=== PATIENT | female | born 1980 | race Caucasian/White ===

== ENCOUNTER 2016-12-22 10:55 | Emergency (ER) | payer MEDICAID ==
[2016-12-22 11:18] LABS: URINE APPEARANCE CLEAR; URINE BILIRUBIN NEGATIVE (NEGATIVE); URINE BLOOD TRACE-I (NEGATIVE); URINE COLOR YELLOW; URINE GLUCOSE (UA) NEGATIVE (NEGATIVE); URINE KETONE NEGATIVE (NEGATIVE); URINE LEUKOCYTE ESTERASE NEGATIVE (NEGATIVE); URINE NITRITE NEGATIVE (NEGATIVE); URINE PROTEIN NEGATIVE (NEGATIVE); URINE UROBILINOGEN 0.2 E.U./dL (0.20 - 1.00)
[2016-12-22 11:19] LABS: HCG,QUALITATIVE URINE NEGATIVE (NEGATIVE)
[2016-12-22 11:34] LABS: URINE BACTERIA NONE SEEN; URINE EPITHELIAL CELLS 0 - 2 (FEW); URINE RBC 0 - 2 (NONE SEEN); URINE WBC 0 - 2 (0-2/hpf)
--- NOTE | 2016-12-22 11:51 | Emergency Department Record ---
History of Present Illness - General Chief Complaint: Back Pain/Injury Stated Complaint: BACK PAIN Time Seen by Provider: 12/22/16 11:43 Source: Patient, RN notes reviewed - History of Present Illness Initial Comments: Patient has right sided back pain from L2 to L5 and worse bending over and moving and she is left handed and carrying her baby. who is 11 weeks old. Patient was seen at [facility] and roberto was concerned about PE and she brought her over to ED. Patient denies being SOB but her back hurts when she takes a breath. PMH two back surgeries and she has fibromylsia. No leg pains on palpation only radiation pain from her back into both legs. Back surgery 4 years ago and 3 years ago and they removed lipomas. Stopped breast feeding 3 weeks ago. MD Complaint: Back pain Onset/Timin -: Days(s) Similar Symptoms Previously: No Place: Home Radiation: Left leg, Right leg Severity: Moderate Severity scale (1-10): 8 Quality: Sharp, Other Consistency: Constant Improves With: None Worsens With: Deep breaths/cough, Movement Context: Unknown Treatments Prior to Arrival: Acetaminophen Treatment Prior to Arrival Comment:: Tylenol last PM - Related Data Home Medications Medication Instructions Recorded Confirmed Last Taken Albuterol Sulfate [Ventolin Hfa] 1 - 2 puff IH .EVERY 4-6 HOURS PRN 12/22/1611/05 Unknown Norethindrone [Jolie] 0.35 mg PO DAILY #84 12/22/16 12/22/16 12/22/16 Pnv with Ca,No.72/Iron/FA [Pnv 1 tab PO DAILY #30 12/22/16 12/22/16 12/22/16 Plus Multivit Tab] Previous Rx's Medication Instructions Recorded Epinephrine [Epipen] 0.3 mg IM ASDIR PRN #2 syr 02/19/15 Cyclobenzaprine HCl [Flexeril] 10 mg PO TID #30 tablet 12/22/16 Naproxen [Naprosyn] 500 mg PO Q12H #30 tab. 12/22/16 Allergies Allergy/AdvReac Type Severity Reaction Status Date / Time codeine Allergy Intermediate ALTERED Verified 12/22/16 11:06 MENTAL STATUS oxycodone HCl [From Percocet] Allergy Mild HIVES Verified 12/22/16 11:06 Penicillins Allergy Mild HIVES Verified 12/22/16 11:06 SHELLFISH Allergy Intermediate SWELLING Uncoded 02/19/15 14:56 (GENERAL) Travel Screening - Travel/Exposure Within Last 30 Days Have you traveled within the last 30 days?: No - Travel/Exposure Within Last Year Have you traveled outside the [place] in the last year?: No - Additonal Travel Details Have you been exposed to anyone with a communicable illness?: No - Travel Symptoms Symptom Screening: None Review of Systems Reviewed: No additional complaints except as noted below Constitutional: Reports: As per HPI. Denies: Chills, Fever, Malaise, Night sweats, Weakness, Weight change Eyes: Reports: As per HPI. Denies: Eye discharge, Eye pain, Photophobia, Vision change ENT: Reports: As per HPI. Denies: Congestion, Dental pain, Ear pain, Epistaxis , Hearing loss, Throat pain Respiratory: Reports: As per HPI. Denies: Cough, Dyspnea, Hemoptysis, Stridor, Wheezes Cardiovascular: Reports: As per HPI. Denies: Arrhythmia, Chest pain, Dyspnea on exertion, Edema, Murmurs, Orthopnea, Palpitations, Paroxysmal nocturnal dyspnea, Rheumatic Fever, Syncope Endocrine: Reports: As per HPI. Denies: Fatigue, Heat or cold intolerance, Polydipsia, Polyuria Gastrointestinal: Reports: As per HPI. Denies: Abdominal pain, Constipation, Diarrhea, Hematemesis, Hematochezia, Melena, Nausea, Vomiting Genitourinary: Reports: As per HPI. Denies: Abnormal menses, Discharge, Dyspareunia, Dysuria, Frequency, Hematuria, Incontinence, Retention, Urgency Musculoskeletal: Reports: As per HPI, Back pain (right side). Denies: Arthralgia, Gout, Joint swelling, Myalgia, Neck pain Skin: Reports: As per HPI. Denies: Bruising, Change in color, Change in hair/ nails, Lesions, Pruritus, Rash Neurological: Reports: As per HPI. Denies: Abnormal gait, Confusion, Headache, Numbness, Paresthesias, Seizure, Tingling, Tremors, Vertigo, Weakness Psychiatric: Reports: As per HPI. Denies: Anxiety, Auditory hallucinations, Depression, Homicidal thoughts, Suicidal thoughts, Visual hallucinations Hematological/Lymphatic: Reports: As per HPI. Denies: Anemia, Blood Clots, Easy bleeding, Easy bruising, Swollen glands Past Medical History - SOCIAL HISTORY Smoking Status: Current every day smoker Alcohol Use: None Drug Use: None - RESPIRATORY Hx Respiratory Disorders: Yes Hx Asthma: Yes - CARDIOVASCULAR Hx Cardio Disorders: No - NEURO Hx Neuro Disorders: No - GI Hx GI Disorders: No - Hx Genitourinary Disorders: No - ENDOCRINE Hx Endocrine Disorders: No - MUSCULOSKELETAL Hx Musculoskeletal Disorders: Yes Hx Fibromyalgia: Yes - PSYCH Hx Psych Problems: No - HEMATOLOGY/ONCOLOGY Hx Hematology/Oncology Disorders: No Family Medical History Any Significant Family History?: Yes Hx Cancer: Grandparents Hx Heart Disease: Grandparents Physical Exam - General General Appearance: Alert, Oriented x3, Cooperative, No acute distress - Head Head exam: Normal inspection - Eye Eye exam: Normal appearance, PERRL Pupils: Normal accommodation - ENT ENT exam: Normal exam, Mucous membranes moist, Normal external ear exam, Normal orophraynx, TM's normal bilaterally Ear exam: Normal external inspection. negative: External canal tenderness Nasal Exam: Normal inspection. negative: Discharge, Sinus tenderness Mouth exam: Normal external inspection, Tongue normal Teeth exam: Normal inspection. negative: Dental caries Throat exam: Normal inspection. negative: Tonsillar erythema, Tonsillar exudate - Neck Neck exam: Normal inspection, Full ROM. negative: Tenderness - Respiratory Respiratory exam: Normal lung sounds bilaterally. negative: Respiratory distress - Cardiovascular Cardiovascular Exam: Regular rate, Normal rhythm, Normal heart sounds - GI/Abdominal GI/Abdominal exam: Soft, Normal bowel sounds. negative: Tenderness - Rectal Rectal exam: Deferred - exam: Deferred - Extremities Extremities exam: Normal inspection, Full ROM, Normal capillary refill. negative: Tenderness - Back Back exam: Reports: Normal inspection, Full ROM, Tenderness. Denies: Muscle spasm, Rash noted - Neurological Neurological exam: Alert, Normal gait, Oriented X3, Reflexes normal - Psychiatric Psychiatric exam: Normal affect, Normal mood - Skin Skin exam: Dry, Intact, Normal color, Warm Course Vital Signs 12/22/16 11:08 Temperature 97.8 F Pulse Rate 92 H Respiratory 18 Rate Blood Pressure 92/64 Pulse Ox 100 Medical Decision Making - Data Complexity MDM Data: Labs Ordered and/or Reviewed, X-Ray Ordered and/or Reviewed (CTA neg) , EKG Ordered and/or Reviewed (No acute changes) - Lab Data Result diagrams: 12/22/16 12:20 12/22/16 12:20 Lab Results 12/22/16 Range/Units 10:59 Urine Color Yellow Urine Appearance Clear Urine pH 6.5 (5.0-8.0) Ur Specific [place] 1.010 (1.002-1.030) Urine Protein Negative (NEGATIVE) Urine Glucose (UA) Negative (NEGATIVE) Urine Ketones Negative (NEGATIVE) Urine Blood Trace-i (NEGATIVE) Urine Nitrite Negative (NEGATIVE) Urine Bilirubin Negative (NEGATIVE) Urine Urobilinogen 0.2 (0.20 - 1.00) E.U./dL Ur Leukocyte Esterase Negative (NEGATIVE) Urine RBC 0 - 2 (NONE SEEN) Urine WBC 0 - 2 (0-2/hpf) Ur Epithelial Cells 0 - 2 (FEW) Urine Bacteria None seen Urine HCG, Qual Negative (NEGATIVE) Disposition Clinical Impression: Thoracic myofascial strain Qualifiers: Encounter type: initial encounter Qualified Code(s): S29.019A - Strain of muscle and tendon of unspecified wall of thorax, initial encounter Disposition: Home, Self-Care Condition: (1) Good Instructions: Musculoskeletal Pain (ED) Prescriptions: Cyclobenzaprine HCl [Flexeril] 10 mg PO TID #30 tablet Naproxen [Naprosyn] 500 mg PO Q12H #30 tab.dr Forms: Patient Portal Access Time of Disposition: 14:38
[2016-12-22 12:39] LABS: BASO % 0.3 % (0-6); EOS % 3.2 % (0-6); GRAN % 56.7 % (47-80); HEMATOCRIT 46.5 % (35.0-47.0); HEMOGLOBIN 15.6 gm/dl (11.6-16.0); LYMPH % 32.3 % (16-45); MEAN CELL VOLUME 93.8 fl (81-97); MEAN CORPUSCULAR HEMOGLOBIN 31.5 pg (27-33); MEAN CORPUSCULAR HGB CONC 33.5 g/dl (32-36); MEAN PLATELET VOLUME 10.5 fl (7.4-10.4); MONO % 7.5 % (0-9); PLATELET COUNT 282 K/uL (130-400); RED BLOOD COUNT 4.96 M/uL (3.80-5.40); RED CELL DISTRIBUTION WIDTH 13.8 % (11.5-14.5)
[2016-12-22 12:50] LABS: ANION GAP 9.7 (7-16); BLOOD UREA NITROGEN 9 mg/dL (7-17); CARBON DIOXIDE 25.3 mmol/L (22-30); CREATININE 0.9 mg/dL (0.52-1.04); EST GLOMERULAR FILTRATION RATE > 60 ml/min; GLUCOSE,RANDOM 79 mg/dL (70-110)
[2016-12-22 12:54] LABS: D-DIMER 0.77 mg/L FEU (0-0.59); PARTIAL THROMBOPLASTIN TIME 26.1 SECONDS (24.5-39.1)
[2016-12-22 12:59] LABS: CKMB 0.6 ug/L (0-6)
[2016-12-22] MEDS: KETOROLAC 30 MG/ML VIAL IVP ONE (13:14)
== END 2016-12-22 14:54 | disposition home or self-care (01) ==
LOC: ER 10:55
DX: S29.019A Strain of muscle and tendon of unspecified wall of thorax, initial encounter (principal); R79.89 Other specified abnormal findings of blood chemistry; M54.16 Radiculopathy, lumbar region; X58.XXXA Exposure to other specified factors, initial encounter
CPT/HCPCS: 99284 ×2; 96374; 85025; 85730; 82553; 80048; 81001; 81025; 85379; 71275; 93005; 93010; Q9967; J1885

== ENCOUNTER 2018-03-28 13:20 | Emergency (ER) | payer MEDICAID ==
--- NOTE | 2018-03-28 13:30 | Emergency Department Record ---
History of Present Illness - General Chief Complaint: Abdominal Pain Stated Complaint: ABD PAIN Time Seen by Provider: 03/28/18 13:25 Source: Patient Mode of Arrival: Ambulatory Limitations: No limitations - History of Present Illness Initial Comments: 37 yo female presents with right sided abdominal pain. The pain started about 3 days ago. The pain is lateral to the umbilicus. NO fevers. The pain does radiate some to the back. She was seen at the [facility] in [place]. She had labs and a UA performed. She states she was told to go to the ED. No fever. No visible hematuria. She has had renal stones in the past. PCP is Dr Gonzalez. Complaint: Abdominal pain -: Days(s) (3) Location: Other (right side lateral to the umbilicus) Radiation: R flank Migration to: Other Severity: Moderate Quality: Aching Consistency: Constant Improves With: Nothing Worsens With: Nothing Associated Symptoms: Anorexia - Related Data Previous Rx's Medication Instructions Recorded Epinephrine [Epipen] 0.3 mg IM ASDIR PRN #2 syr 02/19/15 Levofloxacin [Levaquin] 750 mg PO DAILY #9 tab 03/28/18 Allergies Allergy/AdvReac Type Severity Reaction Status Date / Time codeine Allergy Intermediate ALTERED Unverified 03/17/18 10:51 MENTAL STATUS oxycodone HCl [From Percocet] Allergy Mild HIVES Unverified 03/17/18 10:51 Penicillins Allergy Mild HIVES Unverified 03/17/18 10:51 cephalexin [From Keflex] Allergy NAUSEA AND Verified 03/28/18 13:35 VOMITING SHELLFISH Allergy Intermediate SWELLING Uncoded 12/12/17 07:54 (GENERAL) Review of Systems Constitutional: Denies: Chills, Fever, Malaise, Weakness Eyes: Denies: Eye discharge ENT: Denies: Congestion, Throat pain Respiratory: Denies: Cough, Dyspnea Cardiovascular: Denies: Chest pain, Syncope Endocrine: Denies: Fatigue Gastrointestinal: Reports: Abdominal pain, Nausea. Denies: Constipation, Diarrhea, Hematemesis, Hematochezia, Melena, Vomiting Genitourinary: Denies: Dysuria, Hematuria, Incontinence, Retention, Urgency Musculoskeletal: Reports: Back pain. Denies: Arthralgia, Joint swelling, Myalgia Skin: Denies: Bruising, Change in color, Rash Neurological: Denies: Headache, Numbness, Weakness Psychiatric: Denies: Anxiety Hematological/Lymphatic: Denies: Blood Clots, Easy bleeding, Easy bruising, Swollen glands Past Medical History - SOCIAL HISTORY Smoking Status: Current every day smoker Drug Use: Heavy Drug Use Detail:: Marijuana - RESPIRATORY Hx Respiratory Disorders: Yes Hx Asthma: Yes - CARDIOVASCULAR Hx Cardio Disorders: No - NEURO Hx Neuro Disorders: No - GI Hx GI Disorders: No - Hx Genitourinary Disorders: No - ENDOCRINE Hx Endocrine Disorders: No - MUSCULOSKELETAL Hx Musculoskeletal Disorders: Yes Hx Fibromyalgia: Yes - PSYCH Hx Psych Problems: No - HEMATOLOGY/ONCOLOGY Hx Hematology/Oncology Disorders: No Family Medical History Hx Cancer: Grandparents Hx Heart Disease: Grandparents Physical Exam - General General Appearance: Alert, Oriented x3, Cooperative, No acute distress Limitations: No limitations - Head Head exam: Normal inspection - Eye Eye exam: Normal appearance. negative: Conjunctival injection, Scleral icterus - ENT ENT exam: Normal exam Ear exam: Normal external inspection Nasal Exam: Normal inspection Mouth exam: Normal external inspection - Neck Neck exam: Normal inspection, Full ROM. negative: Tenderness - Respiratory Respiratory exam: Normal lung sounds bilaterally. negative: Respiratory distress - Cardiovascular Cardiovascular Exam: Regular rate, Normal rhythm, Normal heart sounds - GI/Abdominal GI/Abdominal exam: Soft, Tenderness (soft abdomen, tender lateral to the umbilicus). negative: Distended, Guarding, Hypoactive bowel sounds, Rebound, Rigid - Rectal Rectal exam: Deferred - exam: Deferred - Extremities Extremities exam: Normal inspection - Back Back exam: Reports: CVA tenderness (R). Denies: Full ROM, Tenderness - Neurological Neurological exam: Alert, Oriented X3 - Psychiatric Psychiatric exam: Normal affect, Normal mood - Skin Skin exam: Dry, Intact, Normal color, Warm Course - Reevaluation(s) Reevaluation #1: EMR reviewed Abdominal Pelvic CT scans performed 11/24/17 and 09/27/17. No acute process. Right 2.6 mm intrarenal stone. Last PCP visit 03/17/18. Chronic pain management, dysmenorrhea, contraception, Smoking cessation. 03/28/18 13:28 03/28/18 14:31 HCG is negative Few RBC's in the UA CMP is normal 03/28/18 17:[address] was reviewed. There is mild haziness around the right kidney suggesting possible pyelonephritis. She has a few bacteria with RBCs in the UA. The lab was contacted to ensure a urine culture was sent. I recommended antibiotics until culture sent. The patient has multiple allergies We discussed levaquin side effects of possible tendonitis I discussed the lung nodule and need to follow up with the PCP to ensure no progression. Medical Decision Making - Lab Data Result diagrams: 03/28/18 13:40 03/28/18 13:40 Disposition Disposition: Discharge Clinical Impression: Pyelonephritis Disposition: Home, Self-Care Condition: (1) Good Instructions: Urinary Tract Infection in Women (ED) Additional Instructions: Return if you have fever, pain, nausea or vomiting Stop the Levaquin immediately if you have joint pain or tendon pain Call your doctor for close follow up Prescriptions: Levofloxacin [Levaquin] 750 mg PO DAILY #9 tab Forms: Patient Portal Access Time of Disposition: 17:33 Quality - Quality Measures Quality Measures: N/A - Blood Pressure Screening Does Patient Have Any of the Following: No Blood Pressure Classification: Pre-Hypertensive BP Reading Systolic Measurement: 122 Diastolic Measurement: 79 Screening for High Blood Pressure: < Pre-Hypertensive BP, F/U Documented > [ G8950] Pre-Hypertensive Follow-up Interventions: Referral to alternative/primary care provider.
[2018-03-28 13:52] LABS: URINE APPEARANCE CLEAR; URINE BILIRUBIN NEGATIVE (NEGATIVE); URINE BLOOD MODERATE (NEGATIVE); URINE COLOR YELLOW; URINE GLUCOSE (UA) NEGATIVE (NEGATIVE); URINE KETONE NEGATIVE (NEGATIVE); URINE LEUKOCYTE ESTERASE NEGATIVE (NEGATIVE); URINE NITRITE NEGATIVE (NEGATIVE); URINE PROTEIN NEGATIVE (NEGATIVE)
[2018-03-28 13:53] LABS: BASO % 0.2 % (0-6); EOS % 2.2 % (0-6); GRAN % 66.3 % (47-80); HEMATOCRIT 40.2 % (35.0-47.0); HEMOGLOBIN 13.8 gm/dl (11.6-16.0); LYMPH % 23.5 % (16-45); MEAN CELL VOLUME 94.6 fl (81-97); MEAN CORPUSCULAR HEMOGLOBIN 32.5 pg (27-33); MEAN CORPUSCULAR HGB CONC 34.3 g/dl (32-36); MEAN PLATELET VOLUME 10.2 fl (7.4-10.4); MONO % 7.8 % (0-9); PLATELET COUNT 251 K/uL (130-400); RED BLOOD COUNT 4.25 M/uL (3.80-5.40); WHITE BLOOD COUNT W/O DIFF 10.3 K/uL (4.2-12.2)
[2018-03-28 13:55] LABS: HCG,QUALITATIVE URINE NEGATIVE (NEGATIVE)
[2018-03-28 14:01] LABS: BLOOD UREA NITROGEN 11 mg/dL (6-20); CREATININE 0.8 mg/dL (0.5-0.9); EST GLOMERULAR FILTRATION RATE > 60 mL/min; TOTAL PROTEIN 6.4 g/dL (6.6-8.7)
[2018-03-28 14:03] LABS: GLUCOSE,RANDOM 107 mg/dL (74-109)
[2018-03-28 14:06] LABS: ALB/GLOB RATIO 1.4 (1.1-1.8); ALBUMIN 3.7 g/dL (4.0-5.0); ALKALINE PHOSPHATASE 78 U/L (35-104); ALT/SGPT 12 U/L (<33); AST/SGOT 15 U/L (10.0-35.0); LIPASE 59 U/L (13-60)
[2018-03-28 14:13] LABS: URINE BACTERIA FEW; URINE EPITHELIAL CELLS 0 - 2 (FEW); URINE WBC 0 - 2 (0-2/hpf)
[2018-03-28] MEDS ORDERED: LEVOFLOXACIN 500 MG TABLET PO ONE (17:29)
--- NOTE | 2018-03-30 14:17 | CT SCAN REPORT ---
DATE: 03/28/2018. EXAM: CT OF THE ABDOMEN AND PELVIS WITH INTRAVENOUS CONTRAST. HISTORY: Abdominal pain. Right lower quadrant pain. TECHNIQUE: Standard CT of the abdomen and pelvis was done with administration of oral and intravenous contrast. The patient was given 100 mL of Omnipaque 300 intravenous contrast. Coronal and sagittal postprocess images were obtained. COMPARISON: CT of the abdomen and pelvis from 11/24/2017. ENCOUNTER: Initial. FINDINGS: The lung bases display mild, scattered areas of atelectasis. I do not see gross infiltrates, edema, or large effusions. There is a tiny right basilar lung nodule measuring about 4.0 mm in diameter. No lung mass lesion. The liver displays mild heterogeneous enhancement throughout the right lobe of the liver. This appears different from the left lobe which appears to be more homogeneous in enhancement. This is of uncertain etiology. This is likely due to the phase of the liver enhancement. There appears to be asymmetric hepatic venous enhancement. I believe less likely would be mild liver inflammatory change or infectious process. Please correlate clinically. There is a small, hypoattenuating lesion within the right lobe of the liver measuring about 8.0 x 6.0 mm in size. This is too small to accurately characterize on CT. However , it likely represents a small cyst. Follow-up ultrasound is suggested. The gallbladder is contracted and somewhat poorly evaluated. The spleen is not enlarged. The pancreas appears appropriate. The adrenal glands appear unremarkable. The left kidney is without evidence of hydronephrosis. I do not see hydroureter. The left ureter is somewhat poorly seen. However, no definitive ureteral stone. Phlebolith-like calcifications are seen. These calcifications are similar compared to the previous study. 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 There is a small, nonobstructive right renal calculus similar to the previous study. There are mild, hazy changes about the right kidney extending into the region of the hepatorenal fossa and the edge of the liver. This may represent mild inflammation. Mild pyelonephritis could be present. Please correlate clinically. I do not see evidence of hydronephrosis. Again, the right ureter is somewhat poorly visualized. However, I do not see definitive evidence of ureteral stone or hydroureter to suggest ureteral stone. The large bowel displays no evidence of surrounding inflammatory changes. I do not see evidence of large bowel obstruction. The appendix is curled within the right lower quadrant at about the region of the cecum without surrounding inflammation. The small bowel displays filling with contrast without evidence of thickening or small bowel obstruction. The stomach is mildly distended with food material and contrast. The aorta is normal in caliber. No evidence of significant atherosclerotic disease. The superior mesenteric artery and superior mesenteric vein appear grossly intact proximally. Portal veins appear intact. The visualized portions of the inferior vena cava appear intact. There is no significant free fluid in the abdomen. Minimal, likely physiologic , free fluid in the pelvis is seen. I do not see evidence of free air. I do not see evidence of abnormal lymphadenopathy. The uterus is midline. The pelvic sidewall appears intact. The bladder appears grossly intact. The inguinal regions appear unremarkable. The subcutaneous tissues display no evidence of inflammatory changes, mass lesions, or abnormal focal fluid collections. The spinal column displays no significant degenerative disease or other acute process. IMPRESSION: 1. MILD SUBTLE STRANDING ABOUT THE RIGHT KIDNEY EXTENDING INTO THE HEPATORENAL FOSSA. CORRELATION FOR RENAL INFECTIOUS PROCESS SUCH PYELONEPHRITIS SHOULD BE MADE. NO EVIDENCE OF HYDRONEPHROSIS OR RENAL OBSTRUCTION. NONOBSTRUCTIVE RIGHT RENAL CALCULUS. 2. MILD HETEROGENEOUS ENHANCEMENT IN THE RIGHT LOBE OF THE LIVER. I SUSPECT THIS IS JUST DIFFERENTIAL ENHANCEMENT DUE TO DRAINAGE PATTERNS. INFLAMMATORY PROCESS OR INFECTIOUS PROCESS WITHIN THE LIVER IS NOT EXCLUDED. PLEASE CORRELATE WITH LIVER FUNCTION TESTS. 3. THE APPENDIX APPEARS WITHIN NORMAL LIMITS. NO OTHER ACUTE PROCESS IS SEEN TO ACCOUNT FOR THIS PATIENT'S ABDOMINAL PAIN. NO EVIDENCE OF SIGNIFICANT FREE FLUID, FREE AIR, OR MASS LESION. 4. SMALL RIGHT BASILAR LUNG NODULE MEASURING ABOUT 4.0 MM IN SIZE. GIVEN THE PATIENT'S HISTORY OF TOBACCO USE, COMPLETE CT OF THE CHEST IS ADVISED ON A NONEMERGENT BASIS FOR FURTHER EVALUATION. 5. SMALL, HYPOATTENUATING LESION IN THE LIVER HIGHLY LIKELY REPRESENTING A SMALL CYST; ALTHOUGH TOO SMALL TO COMPLETELY CHARACTERIZE ON THIS CT. FOLLOW- UP ULTRASOUND IS RECOMMENDED. 6. NO OTHER ACUTE PROCESSES IDENTIFIED. JOB NUMBER: [id number] [facility]
== END 2018-03-28 17:49 | disposition home or self-care (01) ==
LOC: ER 13:20
DX: N10 Acute pyelonephritis (principal); R10.11 Right upper quadrant pain; R31.29 Other microscopic hematuria; R91.1 Solitary pulmonary nodule; F17.210 Nicotine dependence, cigarettes, uncomplicated
CPT/HCPCS: 74177; 80053; 81001; 81025; 83690; 85025; 99283; 99284

== ENCOUNTER 2018-03-30 10:57 | Emergency (ER) | payer MEDICAID ==
--- NOTE | 2018-03-30 11:21 | Emergency Department Record ---
History of Present Illness - General Chief Complaint: Recheck - Other Stated Complaint: ABDOMINAL PAIN Time Seen by Provider: 03/30/18 10:59 Source: Patient Mode of arrival: Ambulatory Limitations: No limitations - History of Present Illness Initial Comments: The patient is here due to persistent upper AP for 3 days. She was seen in the ER 2 days ago and diagnosed with possible Pyelonephritis due to having an Abdominal CT that demonstrated possible haziness to the R kidney but no obstructive Uropathy. The UA did demonstrate a few RBC's with bacteria but no WBC's. Due to that fact the patient was placed on Levaquin. Since discharge the patient has been vomiting and states she did have a fever yesterday of 99.9. Due to the vomiting yesterday (but none today) the patient is here for recheck and believes she needs her Abx changed. She presently denies any nausea, dysuria , back pain, or fever but is having persistent crampy upper AP. MD Complaint: Other Onset/Timin -: Days(s) Initial Visit For: Other Returns Today for: Other Associated Symptoms: Abdominal pain, Chills - Related Data Previous Rx's Medication Instructions Recorded Epinephrine [Epipen] 0.3 mg IM ASDIR PRN #2 syr 02/19/15 Levofloxacin [Levaquin] 750 mg PO DAILY #9 tab 03/28/18 Sulfamethoxazole/Trimethoprim 1 tab PO BID #14 tab 03/30/18 [Bactrim Ds] Allergies Allergy/AdvReac Type Severity Reaction Status Date / Time codeine Allergy Intermediate ALTERED Verified 03/30/18 11:10 MENTAL STATUS oxycodone HCl [From Percocet] Allergy Mild HIVES Verified 03/30/18 11:10 Penicillins Allergy Mild HIVES Verified 03/30/18 11:10 cephalexin [From Keflex] Allergy NAUSEA AND Verified 03/30/18 11:10 VOMITING SHELLFISH Allergy Intermediate SWELLING Uncoded 12/12/17 07:54 (GENERAL) Travel Screening - Travel/Exposure Within Last 30 Days Have you traveled within the last 30 days?: No - Travel/Exposure Within Last Year Have you traveled outside the [place] in the last year?: No - Additonal Travel Details Have you been exposed to anyone with a communicable illness?: No - Travel Symptoms Symptom Screening: None Review of Systems Constitutional: Reports: Chills, Fever, Malaise Eyes: Denies: Eye discharge ENT: Denies: Congestion Respiratory: Denies: Cough, Dyspnea Cardiovascular: Denies: Chest pain Endocrine: Reports: Fatigue Gastrointestinal: Reports: Abdominal pain, Nausea, Vomiting. Denies: Diarrhea Genitourinary: Denies: Discharge, Dysuria Musculoskeletal: Denies: Back pain Past Medical History - SOCIAL HISTORY Smoking Status: Current every day smoker Alcohol Use: None Drug Use: None - RESPIRATORY Hx Respiratory Disorders: Yes Hx Asthma: Yes - CARDIOVASCULAR Hx Cardio Disorders: No - NEURO Hx Neuro Disorders: No - GI Hx GI Disorders: No - Hx Genitourinary Disorders: No Hx Kidney Stones: Yes - ENDOCRINE Hx Endocrine Disorders: No - MUSCULOSKELETAL Hx Musculoskeletal Disorders: Yes Hx Fibromyalgia: Yes - PSYCH Hx Psych Problems: No - HEMATOLOGY/ONCOLOGY Hx Hematology/Oncology Disorders: No Family Medical History Any Significant Family History?: Yes Hx Cancer: Grandparents Hx Heart Disease: Grandparents Physical Exam - General General Appearance: Alert, Oriented x3, Cooperative, No acute distress - Head Head exam: Atraumatic, Normocephalic, Normal inspection - Eye Eye exam: Normal appearance, PERRL, EOMI - Neck Neck exam: Normal inspection, Full ROM. negative: Tenderness - Respiratory Respiratory exam: Normal lung sounds bilaterally. negative: Respiratory distress - Cardiovascular Cardiovascular Exam: Regular rate, Normal rhythm, Normal heart sounds - GI/Abdominal GI/Abdominal exam: Soft, Normal bowel sounds, Tenderness (There is very mild diffuse upper abdominal tenderness to palpation but the abdomen is very soft.). negative: Distended, Guarding, Hypoactive bowel sounds, Rebound, Rigid - Extremities Extremities exam: Normal inspection, Full ROM, Normal capillary refill. negative: Tenderness - Back Back exam: Denies: CVA tenderness (R), CVA tenderness (L) - Neurological Neurological exam: Alert, Normal gait, Oriented X3. negative: Abnormal gait, Motor sensory deficit Course Vital Signs 03/30/18 11:11 Temperature 98.1 F Pulse Rate 96 H Respiratory 20 Rate Blood Pressure 111/81 Pulse Ox 97 - Reevaluation(s) Reevaluation #1: I explained to the patient the prudent course of action is to start on IV for hydration and recheck lab work and the UA to make sure the possible infection is not worsening. The patient is refusing that plan and is only interested on receiving a new oral Abx due to the Levaquin causing vomiting. I explained to her that due to the fact she is still having pain and vomiting and possibly a fever her illness could be worsening. I also explained to her that by NOT doing these tests she could go home and have a worsening infection, sepsis, bowel perforation, become disabled and even . The patient understands and accepts the risks and presently has proper decision making capacity. She was instructed to see her PCP ANETTE for recheck and to return to the ER for any worsening symptoms. 03/30/18 11:37 Disposition Disposition: Discharge Clinical Impression: Abdominal pain Qualifiers: Abdominal location: upper abdomen, unspecified Qualified Code(s): R10.10 - Upper abdominal pain, unspecified Disposition: Against Medical Advice Condition: (2) Stable Instructions: Abdominal Pain (ED) Additional Instructions: Please stop the Levaquin and use your home nausea medicine as needed. Please start the Bactrim as directed. Please see your family doctor for recheck tomorrow. Return to the ER for any worsening symptoms. Prescriptions: Sulfamethoxazole/Trimethoprim [Bactrim Ds] 1 tab PO BID #14 tab Forms: Patient Portal Access Time of Disposition: 11:32 Quality - Quality Measures Quality Measures: N/A - Blood Pressure Screening View Details: Yes Does Patient Have Any of the Following: No Blood Pressure Classification: Pre-Hypertensive BP Reading Systolic Measurement: 116 Diastolic Measurement: 82 Screening for High Blood Pressure: < Pre-Hypertensive BP, F/U Documented > [ G8950] Pre-Hypertensive Follow-up Interventions: Referral to alternative/primary care provider.
== END 2018-03-30 11:40 | disposition left against medical advice (07) ==
LOC: ER 10:57
DX: R10.10 Upper abdominal pain, unspecified (principal); R11.11 Vomiting without nausea; F17.210 Nicotine dependence, cigarettes, uncomplicated
CPT/HCPCS: 99282